=== PATIENT | male | born 1945 | race Caucasian/White ===

== ENCOUNTER 2016-06-28 15:10 | Emergency (ER) | payer MEDICARE ==
[~2016-06-28] VITALS: Ht 177.8 cm; Wt 77.3 kg
[~2016-06-28 15:10] MED LIST: CARV12.52 PO; LOSA50TA37 PO; METF500T4 PO; SIMV40TA5 PO; SPIR25TA3 PO; isosorbide
[2016-06-28 15:18] VITALS: BP 145/68; PULSE 84; RESP 18; O2SAT 95
--- NOTE | 2016-06-28 15:31 | ED.REPORT ---
HPI-General Illness Date of Service Jun 28, 2016 ED Provider: Xavier Palma MD This is a 70 year old male with a history of [place] x3, hyperlipidemia, CABG, CVA, s /p pacemaker insertion, hyperlipidemia, DM, HTN sent to the ED by urgent care via EMS due to defibrillator alarming that occurred 12 hours ago. Pt denies chest pain, shortness of breath, nausea, vomiting, dizziness, or lightheadedness. He has a history of defibrillator firing during the night. Breast Surgeon: Dr. Collins in [place]. Nursing Notes Stated Complaint: DIFIBULATOR WENT OFF Chief Complaint: Dysrhythmia/Cardiac Nursing Notes Reviewed: Yes Allergies: Coded Allergies: codeine (Verified Allergy, Intermediate, "I HAVE ADVERSE REACTIONS", ) No Known Allergies (Unverified Allergy, Unknown, 08/19/15) Scheduled Carvedilol (Carvedilol) 12.5 Mg Tablet 12.5 MG PO BID Losartan Potassium (Losartan Potassium) 50 Mg Tablet 50 MG PO BID Magnesium Oxide (Magnesium Oxide) 400 Mg Tablet 400 MG PO BID Metformin (Metformin) 500 Mg Tablet 1,000 MG PO BID Simvastatin (Simvastatin) 40 Mg Tablet 40 MG PO HS Spironolactone (Spironolactone) 25 Mg Tablet 25 MG PO DAILY Miscellaneous Medications ([isosorbide]) General Time Seen by MD: 15:27 Chief Complaint Other Hx Obtained From: Patient Arrived By: Walk-in Sudden in Onset?: Yes Onset Occurred: 9 - 12 hours ago Symptom Duration: Since onset Severity: Current: No pain currently Pertinent Negative: Pt denies other symptoms Recent Healthcare: No recent hospitalization, Recent doctor visit Similar Sx Previous: No Past Medical History Past Medical History MIX3 Reports: Diabetes mellitus, Hyperlipidemia, Hypertension, Stroke Past Surgical History shoulder surgery Reports: CABG Reports: Pacemaker insertion Smoking History Never Smoker Ambulatory Status Independent Review of Systems Full Review of Systems Constitutional: Denies: Chills, Fever Cardiovascular: Denies: Chest pain GI: Denies: Abdominal pain, Constipation, Diarrhea, Nausea, Vomiting Male: Denies Dysuria Neurologic: Denies: Headache Complete sys rev & neg: except as marked. Physical Exam Vital Signs Vital Signs Date Time Temp Pulse Resp B/P Pulse Ox O2 Delivery O2 Flow Rate FiO2 06/28/16 17:15 68 19 114/62 95 Room Air 06/28/16 15:18 36.7 84 18 145/68 95 Room Air 06/28/16 15:18 36.7 84 18 145/68 95 Room Air Initial VS: Reviewed General/Constitutional: Well-developed, Well-nourished Head / Eyes: Atraumatic, Normocephalic, PERRL ENT: Mucous membranes moist, Conjunctiva normal, No scleral icterus Respiratory: Breath sounds normal, Clear to auscultation, No respiratory distress Abdomen / GI: Soft, Non-tender, No guarding, No rebound, No distention Extremities: Vascular intact, Neuro intact, No swelling, No tenderness Skin: Warm, Dry, No cyanosis Neurologic: Alert, Oriented, Nonfocal Psychiatric: Mood/affect normal, Behavior normal, Normal thought content Neck: Supple, No meningismus, Full range of motion, No swelling, Non-tender, No masses No jugular vein distention Cardiovascular: Heart rate NL, Heart sounds NL, Cap refill not delayed, Peripheral circulation NL Heart Sounds / Murmur: Positive: Murmur present... (II/) Interpretation & Diagnostics CHEST X-RAY IMPRESSION: Postoperative changes, no acute cardiopulmonary abnormality Dictated by: Justus Eric M.D. on 06/28/2016 at 16:12 Approved by: Justus Eric M.D. on 06/28/2016 at 16:13 Lab Results Interpretation Result Diagram: 06/28/16 1537 06/28/16 1537 Test 06/28/16 15:37 White Blood Count 12.9th/mm3 (3.8-10.1) Red Blood Count 4.37mil/mm3 (4.40-5.80) Hemoglobin 13.1g/dL (13.8-17.2) Hematocrit 38.2% (41.0-50.0) Mean Corpuscular Volume 87.4fL (81-100) Mean Corpuscular Hemoglobin 30.0pg (27.0-35.0) Mean Corpuscular Hemoglobin Concent 34.3% (32.0-37.0) Red Cell Distribution Width 13.1% (12.3-15.4) Platelet Count 307bil/L (150-400) Neutrophils (%) (Auto) 76.5% (40-74) Lymphocytes (%) (Auto) 9.9% (14-46) Monocytes (%) (Auto) 13.0% (4-12) Eosinophils (%) (Auto) 0.2% (0-5) Basophils (%) (Auto) 0.2% (0-3) Sodium Level 130mEq/L (134-144) Potassium Level 4.4mEq/L (3.5-5.2) Chloride Level 92mEq/L (97-108) Carbon Dioxide Level 22mmol/L (18-29) Blood Urea Nitrogen 14mg/dL (8-27) Creatinine 0.86mg/dL (0.76-1.27) Estimat Glomerular Filtration Rate 93mL/min (>59) Glucose Level 251mg/dL (60-99) Calcium Level 9.4mg/dL (8.5-10.1) Magnesium Level 1.5mg/dL (1.6-2.6) Total Bilirubin 1.0mg/dL (0.0-1.2) Aspartate Amino Transf (AST/SGOT) 36U/L (0-50) Alanine Aminotransferase (ALT/SGPT) 32U/L (0-44) Alkaline Phosphatase 271U/L (25-160) Troponin T < 0.010ug/L (0.0-0.011) Pro-B-Type Natriuretic Peptide 1827pg/mL (0-376) Total Protein 8.0g/dL (6.4-8.4) Albumin 3.6g/dL (3.4-5.0) ECG Interpretation ECG Interpretation: NSR at a rate of 60 Atrial paced LBBB unchanged from prior on 03/13/15 Time: 16:40 Interpreted by: ED physician Re-Eval/Medical Decision Med Decision/Clinical Course Device was interrogated while the patient was in the emergency department. The patient demonstrated an episode of ventricular tachycardia treated with a discharge of the AICD. No other discharges or events were reported. Appropriate discharge 1-year-old male with an appropriate discharge her with AICD device. Does not appear to have ischemic disease or acute congestive heart failure. He has a slightly low magnesium. We will add a magnesium supplement, and have him follow-up with his regular compugraph operator soon. Consultation : Consulted With: Cardiology Call Returned at: 16:39 Note: Discussed evaluation with pt's compugraph operator, Dr. Collins. Will see him this week. Counseled Regarding: Diagnosis, Lab results, Need for follow-up, When/why to return to ED Discharge & Departure Primary Impression: Ventricular arrhythmia Additional Impression: Defibrillator discharge Disposition: Home Discharge Condition All VS Reviewed: Yes Condition: Stable Additional Instructions: Emergency department evaluation today included interview, examination, chest x- ray, and lab testing. The results were reassuring. I discussed the evaluation today with your compugraph operator, Dr. Collins. He would like to see you in his office this week, call tomorrow morning to schedule an appointment. We will add magnesium supplementation- mag oxide 400mg twice a day. Return to the emergency department if you develop any new or worsening symptoms such as chest pain, shortness of breath, nausea, dizziness, or lightheadedness. Referrals: Sudeep Seals MD (PCP) Scribe Attestation Portions of this note were transcribed by Gregory Ramey. I, Dr. Palma personally performed the history, physical exam and medical decision-making; I reviewed and confirmed the accuracy of the information in the transcribed note. Signed by Shireen Marshall, 06/28/2016 at 18:00. Xavier Palma MD Jun 28, 2016 15:31 GREGORY RAMEY Jun 28, 2016 15:33
[2016-06-28 15:42] LABS: BASOPHILS % (AUTO) 0.2 % (0-3); EOSINOPHILS % (AUTO) 0.2 % (0-5); Mean Corpuscular Volume 87.4 fL (81-100); NEUTROPHILS % (AUTO) 76.5 % (40-74); Platelet Count 307 bil/L (150-400)
[2016-06-28 16:06] LABS: Magnesium 1.5 mg/dL (1.6-2.6)
[2016-06-28 16:09] LABS: TROPONIN T < 0.010 ug/L (0.0-0.011)
--- NOTE | 2016-06-28 16:15 | DRSVH ---
PROCEDURE: X-RAY CHEST ONE VIEW, PORTABLE ([id number]) INDICATIONS: defibrillator fired TECHNIQUE: One view of the chest was acquired. COMPARISON: 03/13/2015 FINDINGS: Surgical changes and devices: Mediastinal sutures with CABG. AICD. Orthopedic staple right humeral he ad. Lungs and pleura: No pleural effusions or pneumothorax. Lungs are clear. Mediastinum: Mediastinal contours appear normal. Heart size is normal. Bones and chest wall: No suspicious bony lesions. Overlying soft tissues appear unremarkable. IMPRESSION: Postoperative changes, no acute cardiopulmonary abnormality Dictated by: Justus Eric M.D. on 06/28/2016 at 16:12 Approved by: Justus Eric M.D. on 06/28/2016 at 16:13
[2016-06-28] MEDS ORDERED: MAGN400T4 PO (16:53)
[2016-06-28 17:15] VITALS: BP 114/62; PULSE 68; RESP 19; O2SAT 95
== END 2016-06-28 17:16 | disposition home or self-care (01) ==
LOC: EDBD 15:10 → SED 15:10
DX: T82.118A Breakdown (mechanical) of other cardiac electronic device, initial encounter (principal); I49.9 Cardiac arrhythmia, unspecified; Y84.8 Other medical procedures as the cause of abnormal reaction of the patient, or of later complication, without mention of misadventure at the time of the procedure; Y93.89 Activity, other specified; Y92.9 Unspecified place or not applicable; Y99.8 Other external cause status; E11.9 Type 2 diabetes mellitus without complications; Z86.73 Personal history of transient ischemic attack (TIA), and cerebral infarction without residual deficits; Z79.4 Long term (current) use of insulin
CPT/HCPCS: 36415; 71010; 80053; 83735; 83880; 84484; 85025; 93005; 99285; A4300; G0463